=== PATIENT | female | born 1955 | race Caucasian/White ===

== ENCOUNTER → 2016-06-20 | Outpatient (CLI) | payer BC ==
[2016-06-20 11:13] LABS: CREATININE, URINE 230.8 MG/DL (15-500)
== END ==
LOC: MOB LAB 09:59
PROVIDERS: ATTEND Nurse Practitioner Family
DX: E11.9 Type 2 diabetes mellitus without complications (principal)
CPT/HCPCS: 82043

== ENCOUNTER → 2016-06-28 | Outpatient (CLI) | payer BC ==
--- NOTE | 2016-06-29 13:18 | DI ---
CT BONE DENSITOMETRY OF THE SPINE AND HIP, 06/28/2016 8:44 AM : Clinical History: Asymptomatic post menopausal patient. Screening. Previous Exam: 04/25/2014. 3D Quantitative CT (QCT) Bone Mineral Densitometry: The [place] scans are normal. Low dose scans are sampled through the midbodies of L1 and L2. Average bone mineral density (BMD) is 96.8 mg/mL corresponding to a volumetric T-score of -2.8 and Z-score of -0.3. The [employer]'s (ACR) volumetric QCT BMD conversion table categorizes this patient as having osteopenia of the lumbar spine. The previous exam gave a bone mineral density valu e of 65.5 mg/mL and a T score of -3.0. CT X-Ray Absorptiometry (CTXA) Bone Mineral Densitometry of the Left Hip: Total hip BMD: 825 mg/cm2 T-score: -0.8 Z-score: 0.1 Femoral neck BMD: 714 mg/cm2 T-score: -0.7 Z-score: 0.4 Note: T-scores of the spine and hip are discordant approximately 40% of the times. Changes in actual QCT or CTXA/DEXA measurements are more reliable in assessment of change in BMD status rather than jagruti nges in T-scores. READIN. The QCT lumbar spine BMD value by ACR's 3D volumetric to 2D areal conversion categorizes this pat ient as having osteopenia of the lumbar spine. The QCT spine T-score is -2.8, indicating this patient has osteoporosis of the lumbar spine. Qualitatively, the density of the trabecular bone of the lumba r spine has not changed significantly between the 2 examinations. 2. The CTXA total hip and femoral neck BMD T-scores are -0.8 and -0.7, respectively. The left total hip T-score indicates this patient has normal bone mineral density of the total hip.
== END ==
LOC: CT 08:40
PROVIDERS: ATTEND Nurse Practitioner Family
DX: M81.0 Age-related osteoporosis without current pathological fracture (principal)
CPT/HCPCS: 77078